=== PATIENT | female | born 1980 | race Two or more races ===

== ENCOUNTER 2021-01-20 00:51 | Emergency (ER) | payer OTHER ==
[~2021-01-20] VITALS: Ht 162.6 cm; Wt 59.0 kg
[2021-01-20] MEDS ORDERED: PEPCID AC20 MG PO (04:15)
[2021-01-20] MEDS ORDERED: CARAFATE1 GM PO (04:15)
== END 2021-01-20 04:25 | disposition home or self-care (01) ==
LOC: ER 00:51
DX: K29.60 Other gastritis without bleeding (principal); Z03.818 Encounter for observation for suspected exposure to other biological agents ruled out; R11.2 Nausea with vomiting, unspecified; R10.13 Epigastric pain; R10.12 Left upper quadrant pain

== ENCOUNTER 2021-10-22 17:09 | Emergency (ER) | payer OTHER ==
[~2021-10-22] VITALS: Ht 162.6 cm; Wt 59.0 kg
[~2021-10-22 17:09] MED LIST: CARAFATE1 GM PO; PEPCID AC20 MG PO
== END 2021-10-22 20:18 | disposition home or self-care (01) ==
LOC: ER 17:09
DX: F41.9 Anxiety disorder, unspecified (principal)

== ENCOUNTER 2023-12-03 15:22 | Emergency (ER) | payer OTHER ==
[~2023-12-03] VITALS: Ht 162.6 cm; Wt 54.0 kg
[2023-12-03 17:48] LABS: HEMATOCRIT 38.2 % (36.0-45.00); MEAN CELL VOLUME 100.6 fL (80.00-100.00); MEAN CORPUSCULAR HEMOGLOBIN 34.2 pg (27.00-32.0); PLATELET COUNT 208 K/uL (150-450); RED CELL DISTRIBUTION WIDTH 13.3 % (11.5-14.5)
[2023-12-03 17:52] LABS: URINE APPEARANCE Clear; URINE BILIRRUBIN Negative (NEGATIVE); URINE BLOOD Negative; URINE COLOR Yellow; URINE GLUCOSE Negative (NEGATIVE); URINE KETONE Trace (NEGATIVE); URINE LEUKOCYTE Negative; URINE NITRATE Negative; URINE PROTEIN Negative (NEGATIVE); URINE UROBILINOGEN 0.2 E.U./dl
[2023-12-03 17:57] LABS: URINE BACTERIA 181.3 uL (0.0-1933); URINE EPITHELIAL CELLS 7.4 uL (0.0-38.8); URINE RBC 3.9 uL (0.0-20.8); URINE WBC 3.2 uL (0.0-23.2)
[2023-12-03 18:08] LABS: URINE CAST 0.15 uL (0.0-1.40)
[2023-12-03 18:18] LABS: ALBUMIN 3.9 gm/dL (3.4-5.0); BILIRUBIN TOTAL 0.43 mg/dL (0.3-1.2); CALCIUM 8.6 mg/dL (8.5-10.1); CREATININE SERUM 0.52 mg/dL (0.55-1.02); GFR 127.52; GLOBULINA 3.3 G/DL (2.4-3.5); POTASSIUM 4.13 mEq/L (3.5-5.1); TOTAL PROTEIN 7.2 gm/dL (6.4-8.2)
== END 2023-12-03 19:53 | disposition home or self-care (01) ==
LOC: ER 15:24
PROVIDERS: Preventive Medicine Public Health & General Preventive Medicine
DX: N39.0 Urinary tract infection, site not specified (principal)

== ENCOUNTER 2024-01-09 13:59 | Emergency (ER) | payer OTHER ==
[~2024-01-09] VITALS: Ht 160 cm; Wt 52.2 kg
[2024-01-09] MEDS ORDERED: MACRODANTIN50 MG (15:22)
[2024-01-09 17:59] LABS: HEMATOCRIT 41.4 % (36.0-45.00); HEMOGLOBIN 14.6 g/dL (12.0-15.00); MEAN CELL VOLUME 97.6 fL (80.00-100.00); MEAN CORPUSCULAR HEMOGLOBIN 34.4 pg (27.00-32.0); MEAN CORPUSCULAR HGB CONC 35.2 g/dl (32.0-36.0); PLATELET COUNT 252 K/uL (150-450); RED BLOOD COUNT 4.24 M/uL (4.00-6.00)
[2024-01-09 18:32] LABS: URINE APPEARANCE Clear; URINE BILIRRUBIN Negative (NEGATIVE); URINE BLOOD Negative; URINE COLOR Yellow; URINE GLUCOSE Negative (NEGATIVE); URINE KETONE 15 (NEGATIVE); URINE LEUKOCYTE Negative; URINE NITRATE Negative; URINE PROTEIN Negative (NEGATIVE); URINE UROBILINOGEN 0.2 E.U./dl
[2024-01-09 18:36] LABS: URINE BACTERIA 241.7 uL (0.0-1933); URINE EPITHELIAL CELLS 6.2 uL (0.0-38.8); URINE RBC 2.1 uL (0.0-20.8)
[2024-01-09 18:38] LABS: URINE WBC 1.6 uL (0.0-23.2)
[2024-01-09 18:39] LABS: CALCIUM 9.8 mg/dL (8.5-10.1); CREATININE SERUM 0.53 mg/dL (0.55-1.02); GFR 124.75; POTASSIUM 4.01 mEq/L (3.5-5.1)
== END 2024-01-09 20:56 | disposition home or self-care (01) ==
LOC: ER 14:01
PROVIDERS: General Practice
DX: R30.0 Dysuria (principal)

== ENCOUNTER → 2024-04-27 | Emergency (ER) | payer OTHER ==
[~2024-04-27] VITALS: Ht 160 cm; Wt 53.1 kg
[~2024-04-27] MED LIST changes: +MACRODANTIN50 MG
== END | disposition left against medical advice (07) ==
LOC: ER 18:25
DX: Z53.21 Procedure and treatment not carried out due to patient leaving prior to being seen by health care provider (principal)